=== PATIENT | male | born 1990 | race Caucasian/White ===

== ENCOUNTER → 2018-01-11 | Outpatient (CLI) | payer OTHER ==
[~2018-01-11] MED LIST: LIDOCAINE 1% 300 MG/30 ML SDV ONE
== END ==
LOC: FIMAGING 10:59
PROVIDERS: ATTEND Orthopaedic Surgery Hand Surgery
PROC: 3E023GC Introduction of Other Therapeutic Substance into Muscle, Percutaneous Approach (ICD-10-PCS; principal; 2018-01-11)
DX: M75.22 Bicipital tendinitis, left shoulder (principal)

== ENCOUNTER 2018-11-06 10:42 | Emergency (ER) | payer OTHER | END 2018-11-06 12:45 | disposition home or self-care (01) ==